=== PATIENT | male | born 1945 | race Caucasian/White ===

== ENCOUNTER 2024-10-31 11:01 | Day surgery (SDC) | payer MEDICARE, OTHER, SELFPAY ==
[2024-10-25 07:49] VITALS: BMI 14.9
[2024-10-31] VITALS (7 sets, daily range): BP systolic 96–153; BP diastolic 58–94; PULSE 53–67; RESP 9–16; TEMP 36.4–36.8; O2SAT 96–98; BMI 22.1
[2024-10-31] MEDS: Lactated Ringers 1,000 ML 100 ML IVCONT (12:31)
--- NOTE | 2024-10-31 13:28 | HO.ANESPROP2 ---
Documented by User: Deonna Obando NP 10/30/24 12:42 HPI - Anesthesia Eval Consult details Narrative: 78yo M for RIGHT Lateral rectus Eye MuscleRecession,RIGHT Medial Rectus Resection Medically optimized per PCP [facility] Past Medical History Medical History (Updated 10/31/24 @ 11:56 by Shanae Patel RN) Bilateral cataracts Acute gastritis Forgetfulness Cough Dizziness Scoliosis Degeneration of intervertebral disc of lumbar region Vasovagal near-syncope Panic attacks Fibroma of foot Balance disorder DDD (degenerative disc disease), cervical Osteoarthritis Lumbar arthropathy Vitamin B 12 deficiency Neuroforaminal stenosis of cervical spine Left cervical radiculopathy Vertigo CVA (cerebral vascular accident) Vertebrobasilar dolichoectasia Cervical facet joint syndrome Arthritis Lacunar infarction HTN (hypertension) Monocular diplopia of right eye Anxiety Surgical History Surgical History (Updated 10/31/24 @ 11:57 by Shanae Patel RN) History of hernia surgery Hx of tooth extraction Hx of arthroscopic knee surgery History of hip replacement Social History Social History Comment: COUNTS CORRECT Patient Tobacco Use Status: Former Tobacco user Tobacco use type: Cigarette Meds Allergies Allergy/AdvReac Type Severity Reaction Status Date / Time hydrocodone Allergy Dizziness Verified 10/25/24 07:25 ibuprofen Allergy Gastrointestinal Verified 10/25/24 07:25 Upset Home Medications ?Medication ?Instructions ?Recorded ?Confirmed ?Last Taken ?Type amlodipine 5 mg tablet 5 mg PO DAILY 10/25/24 10/25/24 Unknown History aspirin 81 mg tablet 81 mg PO DAILY 10/25/24 10/25/24 Unknown History atorvastatin 40 mg tablet 40 mg PO DAILY 10/25/24 10/25/24 Unknown History cholecalciferol (vitamin D3) 25 25 mcg PO DAILY 10/25/24 10/25/24 Unknown History mcg (1,000 unit) tablet (Vitamin D3) cyanocobalamin (vitamin B-12) 1,000 mcg PO DAILY 10/25/24 10/25/24 Unknown History 1,000 mcg tablet (Vitamin B-12) duloxetine 20 mg capsule,delayed 20 mg PO DAILY 10/25/24 10/25/24 Unknown History release duloxetine 30 mg capsule,delayed 30 mg PO DAILY 10/25/24 10/25/24 Unknown History release gabapentin 100 mg capsule 200 mg PO BEDTIME 10/25/24 10/25/24 Unknown History lisinopril 40 mg tablet 40 mg PO DAILY 10/25/24 10/25/24 Unknown History mv-mn-folic 200 mcg-vit K 15 1 cap PO BID 10/25/24 10/25/24 Unknown History mcg-lutein 5 mg-zeaxanthin 1 mg capsule (PreserVision AREDS 2 Plus Multivit) sennosides 17.2 mg tablet 17.2 mg PO BEDTIME 10/25/24 10/25/24 Unknown History Exam Height,Weight and Vital Signs: Height 5 ft 10 in Weight 47 kg Assessment and Plan Assessment Anesthesia Assessment: Chart Reviewed Documented by User: Sia Payton, DO 10/31/24 13:49 HPI - Anesthesia Eval Consult details Narrative: 78yo M for RIGHT Lateral rectus Eye MuscleRecession,RIGHT Medial Rectus Resection Medically optimized per PCP CVA with residual right-sided weakness PMFSH Past Medical History Medical History (Updated 10/31/24 @ 11:56 by Shanae Patel RN) Bilateral cataracts Acute gastritis Forgetfulness Cough Dizziness Scoliosis Degeneration of intervertebral disc of lumbar region Vasovagal near-syncope Panic attacks Fibroma of foot Balance disorder DDD (degenerative disc disease), cervical Osteoarthritis Lumbar arthropathy Vitamin B 12 deficiency Neuroforaminal stenosis of cervical spine Left cervical radiculopathy Vertigo CVA (cerebral vascular accident) Vertebrobasilar dolichoectasia Cervical facet joint syndrome Arthritis Lacunar infarction HTN (hypertension) Monocular diplopia of right eye Anxiety Family History Family history of problems with anesthesia: No Surgical History Surgical History (Updated 10/31/24 @ 11:57 by Shanae Patel RN) History of hernia surgery Hx of tooth extraction Hx of arthroscopic knee surgery History of hip replacement History of Problems with Anesthesia: No Social History Social History Comment: COUNTS CORRECT Patient Tobacco Use Status: Former Tobacco user Tobacco use type: Cigarette Meds Allergies Allergy/AdvReac Type Severity Reaction Status Date / Time hydrocodone Allergy Dizziness Verified 10/25/24 07:25 ibuprofen Allergy Gastrointestinal Verified 10/25/24 07:25 Upset Home Medications ?Medication ?Instructions ?Recorded ?Confirmed ?Last Taken ?Type amlodipine 5 mg tablet 5 mg PO DAILY 10/25/24 10/25/24 Unknown History aspirin 81 mg tablet 81 mg PO DAILY 10/25/24 10/25/24 Unknown History atorvastatin 40 mg tablet 40 mg PO DAILY 10/25/24 10/25/24 Unknown History cholecalciferol (vitamin D3) 25 25 mcg PO DAILY 10/25/24 10/25/24 Unknown History mcg (1,000 unit) tablet (Vitamin D3) cyanocobalamin (vitamin B-12) 1,000 mcg PO DAILY 10/25/24 10/25/24 Unknown History 1,000 mcg tablet (Vitamin B-12) duloxetine 20 mg capsule,delayed 20 mg PO DAILY 10/25/24 10/25/24 Unknown History release duloxetine 30 mg capsule,delayed 30 mg PO DAILY 10/25/24 10/25/24 Unknown History release gabapentin 100 mg capsule 200 mg PO BEDTIME 10/25/24 10/25/24 Unknown History lisinopril 40 mg tablet 40 mg PO DAILY 10/25/24 10/25/24 Unknown History mv-mn-folic 200 mcg-vit K 15 1 cap PO BID 10/25/24 10/25/24 Unknown History mcg-lutein 5 mg-zeaxanthin 1 mg capsule (PreserVision AREDS 2 Plus Multivit) sennosides 17.2 mg tablet 17.2 mg PO BEDTIME 10/25/24 10/25/24 Unknown History Exam Exam Date and Time: 10/31/24 1320 Height,Weight and Vital Signs: Height 5 ft 10 in Weight 47 kg Vital Signs Temperature 98.2 F 10/31/24 12:17 Pulse Rate 57 10/31/24 12:17 Respiratory Rate 16 10/31/24 12:17 Blood Pressure 149/94 H 10/31/24 12:17 Pulse Oximetry 98 10/31/24 12:17 Oxygen Delivery Method Room Air 10/31/24 12:17 Temperature 98.2 F 10/31/24 12:17 Pulse Rate 57 10/31/24 12:17 Respiratory Rate 16 10/31/24 12:17 Blood Pressure 149/94 H 10/31/24 12:17 Pulse Oximetry 98 10/31/24 12:17 Oxygen Delivery Method Room Air 10/31/24 12:17 Airway Mallampati Class: I TM Dist: >3cm Neck ROM: Full Loose/Missing/Broken Teeth: No (patient denies any loose or broken teeth) Heart: S1S2 Lungs: CTAB Assessment and Plan Assessment Anesthesia Assessment: Anesthesia Plan Discussed and Chart Reviewed Final Anesthetic Review Family History of Problems with Anesthesia: No History of Problems with Anesthesia: No NPO: Yes ASA Class: III Final Preanesthetic Review: No Changes in Pt Med Stat, Meds/Allgs Chart Reviewed, Consent Obtained/Reviewed and Anes Risks/Benef Reviewed Patient Risk: Intermediate Procedure Risk: Low Anesthetic Plan Anesthetic Plan: GA and Agree w/ Assess. and Plan Disposition: Standard PACU
--- NOTE | 2024-10-31 15:38 | HO.OPHTHAL ---
Ophthalmology Operative Note Date of Service: 10/31/24 Narrative: Diagnosis exotropia. Postoperative diagnosis same. Procedures 1. Recession of right lateral rectus 8 mm 2. Resection of right medial rectus [address] Cuenca. Anesthesia general. Complications none. The patient was brought to the operative room placed under general anesthesia. The right eye was prepped and draped in the usual sterile ophthalmic fashion. Lid speculum was placed in the eye and a peritomy was created around the right lateral rectus muscle. The muscle was hooked and secured with a double-armed Vicryl suture. It was disinserted from the globe and reattached to a position 8 mm behind the original insertion. Conjunctiva was closed with interrupted Vicryl sutures. Peritomy was then created around the medial rectus muscle. The muscle was hooked and dissected free of its surrounding fascial attachments. Was grasped with the insertion with the muscle clamp and a 7 mm resection was marked off with cautery. The resection point was secured with a double-armed Vicryl suture and the distal muscle resected. The resection point was then drawn forward to the original insertion using the Vicryl suture. Conjunctiva was closed with interrupted Vicryl sutures. The patient was then awoken from general anesthesia and discharged to postoperative recovery in good condition.
== END 2024-10-31 15:30 | disposition home or self-care (01) ==
PROVIDERS: PCP Internal Medicine; Visit Provider Ophthalmology
PROC: (CPT 67312; principal; 2024-10-31 13:20)
DX: H53.2 Diplopia (principal); I10 Essential (primary) hypertension; M47.22 Other spondylosis with radiculopathy, cervical region; M47.816 Spondylosis without myelopathy or radiculopathy, lumbar region; F41.1 Generalized anxiety disorder; Z86.73 Personal history of transient ischemic attack (TIA), and cerebral infarction without residual deficits; R26.81 Unsteadiness on feet; Z79.82 Long term (current) use of aspirin; Z88.8 Allergy status to other drugs, medicaments and biological substances; Z87.891 Personal history of nicotine dependence; Z88.6 Allergy status to analgesic agent; Z79.899 Other long term (current) drug therapy
CPT/HCPCS: 67312; J0131; J1100; J1596; J2003; J2405; J2704; J3010